=== PATIENT | male | born 1960 | race Caucasian/White ===

== ENCOUNTER 2017-05-21 21:24 | Inpatient (IN) | payer MEDICAID ==
[~2017-05-21] VITALS: Ht 172.7 cm; Wt 71.0 kg
[2017-05-21 22:42] LABS: BASOPHIL % 0.3 % (0-2); PLATELET COUNT 163 x10^3mcL (130-400); RED CELL DISTRIBUTION WIDTH 19.7 % (11.5-14.5)
[2017-05-21 23:21] LABS: ALBUMIN 3.5 g/dL (3.4-5.0); BILIRUBIN TOTAL 0.4 mg/dL (0.20-1.00); CALCIUM 9.9 mg/dL (8.5-10.1); CARBON DIOXIDE 29.5 mmol/L (21-32)
[2017-05-21 23:22] LABS: CK-MB 10.2 ng/mL (0-3.6); TOTAL PROTEIN, SERUM 8.7 g/dL (6.4-8.2)
[2017-05-21 23:24] LABS: POTASSIUM SERUM 5.6 mmol/L (3.5-5.1)
[2017-05-21 23:25] LABS: CREATININE SERUM 5.3 mg/dL (0.7-1.3)
[2017-05-22] VITALS (17 sets, daily range): BP systolic 107–165; BP diastolic 49–96
[2017-05-22] MEDS ORDERED: NORCO1 TA2 GT (00:19)
[2017-05-22] MEDS ORDERED: SYNTHROID0.125 MG GT (00:20)
[2017-05-22] MEDS ORDERED: EPOGEN10000 U/ML IJ (00:20)
[2017-05-22] MEDS ORDERED: MOM PO (00:21)
[2017-05-22] MEDS ORDERED: DULCOLAX10 M1 RC (00:21)
[2017-05-22] MEDS ORDERED: FLEET ENEMA135 ML RC (00:22)
[2017-05-22] MEDS ORDERED: ALBUTEROL SULFAT0.51 NEB (00:22)
[2017-05-22] MEDS ORDERED: PROSTATE HEALT1 EACH (00:23)
[2017-05-22] MEDS ORDERED: ATIVAN1 MG GT (00:23)
[2017-05-22] MEDS ORDERED: NEP PO (00:23)
[2017-05-22 01:18] LABS: MAGNESIUM 3.3 mg/dL (1.8-2.4); PHOSPHOROUS 7.4 mg/dL (2.5-4.9)
[2017-05-22 01:20] LABS: T3 TOTAL 0.62 ng/mL
[2017-05-22 01:28] LABS: FREE THYROXINE INDEX 2.4 ug/dL (1.4-4.5); T4(THYROXINE) 8.5 ug/dL (4.7-13.3)
[2017-05-22 01:34] LABS: CHOLESTEROL/HDL RATIO 1.7
[2017-05-22 07:00] LABS: BASOPHIL % 0.4 % (0-2); PLATELET COUNT 127 x10^3mcL (130-400); RED CELL DISTRIBUTION WIDTH 18.5 % (11.5-14.5)
[2017-05-22 07:19] LABS: CALCIUM 9.5 mg/dL (8.5-10.1); CARBON DIOXIDE 26.2 mmol/L (21-32); MAGNESIUM 3.1 mg/dL (1.8-2.4); PHOSPHOROUS 7.3 mg/dL (2.5-4.9); POTASSIUM SERUM 5.5 mmol/L (3.5-5.1)
[2017-05-22 07:28] LABS: CREATININE SERUM 5.5 mg/dL (0.7-1.3)
[2017-05-23] VITALS (16 sets, daily range): BP systolic 118–169; BP diastolic 67–91
[2017-05-23 05:37] LABS: BASOPHIL % 0.3 % (0-2)
[2017-05-23 05:44] LABS: CALCIUM 9.1 mg/dL (8.5-10.1); CARBON DIOXIDE 26.8 mmol/L (21-32); CREATININE SERUM 3.2 mg/dL (0.7-1.3); POTASSIUM SERUM 4.2 mmol/L (3.5-5.1)
[2017-05-23 05:51] LABS: PLATELET COUNT 125 x10^3mcL (130-400); RED CELL DISTRIBUTION WIDTH 18.2 % (11.5-14.5)
[2017-05-24] VITALS (18 sets, daily range): BP systolic 105–150; BP diastolic 66–98
[2017-05-24 07:53] LABS: PLATELET COUNT 148 x10^3mcL (130-400)
[2017-05-24 07:56] LABS: BASOPHIL % 0 % (0-2); RED CELL DISTRIBUTION WIDTH 18.9 % (11.5-14.5)
[2017-05-24 08:11] LABS: CALCIUM 9.9 mg/dL (8.5-10.1); CARBON DIOXIDE 27.7 mmol/L (21-32); POTASSIUM SERUM 4.4 mmol/L (3.5-5.1)
[2017-05-25] VITALS (9 sets, daily range): BP systolic 113–133; BP diastolic 57–72
[2017-05-25 06:55] LABS: CALCIUM 9.5 mg/dL (8.5-10.1); CARBON DIOXIDE 27.8 mmol/L (21-32); CREATININE SERUM 3.3 mg/dL (0.7-1.3); MAGNESIUM 2.1 mg/dL (1.8-2.4); PHOSPHOROUS 4.2 mg/dL (2.5-4.9); POTASSIUM SERUM 3.8 mmol/L (3.5-5.1)
[2017-05-25 07:26] LABS: BASOPHIL % 0.3 % (0-2); PLATELET COUNT 138 x10^3mcL (130-400)
[2017-05-25 07:27] LABS: RED CELL DISTRIBUTION WIDTH 18.5 % (11.5-14.5)
[2017-05-26] VITALS (8 sets, daily range): BP systolic 125–160; BP diastolic 55–76
[2017-05-26 06:34] LABS: BASOPHIL % 0.2 % (0-2)
[2017-05-26 06:37] LABS: PLATELET COUNT 118 x10^3mcL (130-400); RED CELL DISTRIBUTION WIDTH 18.3 % (11.5-14.5)
[2017-05-26 07:21] LABS: CALCIUM 9.9 mg/dL (8.5-10.1); CARBON DIOXIDE 26.6 mmol/L (21-32); POTASSIUM SERUM 4.6 mmol/L (3.5-5.1)
[2017-05-26 07:24] LABS: CREATININE SERUM 4.3 mg/dL (0.7-1.3)
[2017-05-27] VITALS (10 sets, daily range): BP systolic 108–164; BP diastolic 55–91
[2017-05-27 07:36] LABS: BASOPHIL % 0.1 % (0-2)
[2017-05-27 07:43] LABS: PLATELET COUNT 119 x10^3mcL (130-400); RED CELL DISTRIBUTION WIDTH 18.2 % (11.5-14.5)
[2017-05-27 07:49] LABS: CARBON DIOXIDE 29.1 mmol/L (21-32); POTASSIUM SERUM 4.5 mmol/L (3.5-5.1)
[2017-05-28 06:20] VITALS: BP 140/78
[2017-05-28 07:27] LABS: BASOPHIL % 0.1 % (0-2); PLATELET COUNT 156 x10^3mcL (130-400)
[2017-05-28 07:39] LABS: RED CELL DISTRIBUTION WIDTH 18.1 % (11.5-14.5)
[2017-05-28 07:47] LABS: CALCIUM 10.4 mg/dL (8.5-10.1); CARBON DIOXIDE 28.7 mmol/L (21-32); CREATININE SERUM 3.8 mg/dL (0.7-1.3); POTASSIUM SERUM 4.1 mmol/L (3.5-5.1)
[2017-05-28 08:30] VITALS: BP 140/78
[2017-05-28 10:32] VITALS: BP 127/76
[2017-05-28 16:15] VITALS: BP 124/66
[2017-05-28 16:49] VITALS: BP 124/66
[2017-05-28 22:04] VITALS: BP 109/56
[2017-05-29 08:55] LABS: CALCIUM 10.6 mg/dL (8.5-10.1); CARBON DIOXIDE 25.9 mmol/L (21-32); PHOSPHOROUS 3.4 mg/dL (2.5-4.9); POTASSIUM SERUM 4.3 mmol/L (3.5-5.1)
[2017-05-29 09:00] LABS: BASOPHIL % 0.3 % (0-2); PLATELET COUNT 144 x10^3mcL (130-400)
[2017-05-29 09:55] LABS: RED CELL DISTRIBUTION WIDTH 18.4 % (11.5-14.5)
[2017-05-29 10:17] LABS: CREATININE SERUM 4.8 mg/dL (0.7-1.3)
[2017-05-29 10:40] VITALS: BP 143/68
[2017-05-29 16:49] VITALS: BP 117/62
[2017-05-29 21:21] VITALS: BP 131/72
[2017-05-30] VITALS (9 sets, daily range): BP systolic 119–137; BP diastolic 65–76
[2017-05-30 07:11] LABS: PLATELET COUNT 163 x10^3mcL (130-400)
[2017-05-30 07:13] LABS: BASOPHIL % 0 % (0-2); RED CELL DISTRIBUTION WIDTH 18.9 % (11.5-14.5)
[2017-05-30 07:15] LABS: CALCIUM 9.9 mg/dL (8.5-10.1); CARBON DIOXIDE 29.6 mmol/L (21-32); CREATININE SERUM 3.2 mg/dL (0.7-1.3); POTASSIUM SERUM 3.3 mmol/L (3.5-5.1)
[2017-05-31] VITALS (7 sets, daily range): BP systolic 109–145; BP diastolic 60–79
[2017-06-01] VITALS (7 sets, daily range): BP systolic 104–146; BP diastolic 78–85
[2017-06-01 07:34] LABS: BASOPHIL % 0.3 % (0-2); PLATELET COUNT 203 x10^3mcL (130-400)
[2017-06-01 07:38] LABS: RED CELL DISTRIBUTION WIDTH 18.5 % (11.5-14.5)
[2017-06-01 07:59] LABS: POTASSIUM SERUM 3.2 mmol/L (3.5-5.1)
[2017-06-01 08:00] LABS: CALCIUM 10.1 mg/dL (8.5-10.1); CARBON DIOXIDE 27.3 mmol/L (21-32); CREATININE SERUM 3.4 mg/dL (0.7-1.3); MAGNESIUM 2.1 mg/dL (1.8-2.4); PHOSPHOROUS 3.6 mg/dL (2.5-4.9)
[2017-06-02] VITALS (12 sets, daily range): BP systolic 113–146; BP diastolic 66–84
[2017-06-02 07:05] LABS: CALCIUM 10.3 mg/dL (8.5-10.1); CARBON DIOXIDE 26.5 mmol/L (21-32); MAGNESIUM 2.3 mg/dL (1.8-2.4); PHOSPHOROUS 4.8 mg/dL (2.5-4.9); POTASSIUM SERUM 3.6 mmol/L (3.5-5.1)
[2017-06-02 07:11] LABS: BASOPHIL % 0.3 % (0-2); PLATELET COUNT 230 x10^3mcL (130-400); RED CELL DISTRIBUTION WIDTH 18.3 % (11.5-14.5)
[2017-06-02 08:06] LABS: CREATININE SERUM 4.6 mg/dL (0.7-1.3)
[2017-06-03] VITALS (9 sets, daily range): BP systolic 114–132; BP diastolic 72–88
[2017-06-03 07:41] LABS: BASOPHIL % 0.3 % (0-2); PLATELET COUNT 241 x10^3mcL (130-400)
[2017-06-03 07:52] LABS: RED CELL DISTRIBUTION WIDTH 18.5 % (11.5-14.5)
[2017-06-03 08:04] LABS: CALCIUM 9.9 mg/dL (8.5-10.1); CARBON DIOXIDE 27.7 mmol/L (21-32); CREATININE SERUM 3.3 mg/dL (0.7-1.3); POTASSIUM SERUM 3.5 mmol/L (3.5-5.1)
[2017-06-04] VITALS (12 sets, daily range): BP systolic 119–141; BP diastolic 72–91
[2017-06-05] VITALS (10 sets, daily range): BP systolic 128–153; BP diastolic 78–88
[2017-06-05 07:00] LABS: BASOPHIL % 0.3 % (0-2); PLATELET COUNT 294 x10^3mcL (130-400)
[2017-06-05 07:03] LABS: RED CELL DISTRIBUTION WIDTH 18.3 % (11.5-14.5)
[2017-06-05 07:13] LABS: CARBON DIOXIDE 28.6 mmol/L (21-32); CREATININE SERUM 3.3 mg/dL (0.7-1.3)
[2017-06-05 07:30] LABS: POTASSIUM SERUM 2.6 mmol/L (3.5-5.1)
[2017-06-06] VITALS (10 sets, daily range): BP systolic 91–162; BP diastolic 64–92
[2017-06-06 07:01] LABS: BASOPHIL % 0.4 % (0-2); PLATELET COUNT 321 x10^3mcL (130-400)
[2017-06-06 07:23] LABS: CALCIUM 10.4 mg/dL (8.5-10.1); CARBON DIOXIDE 25.4 mmol/L (21-32); POTASSIUM SERUM 4.4 mmol/L (3.5-5.1)
[2017-06-06 07:27] LABS: CREATININE SERUM 4.2 mg/dL (0.7-1.3)
[2017-06-06 07:57] LABS: RED CELL DISTRIBUTION WIDTH 19.4 % (11.5-14.5)
[2017-06-07 05:32] VITALS: BP 115/75
[2017-06-07 09:57] VITALS: BP 124/38
[2017-06-07 17:14] VITALS: BP 155/44
[2017-06-07 20:00] VITALS: BP 155/44
[2017-06-07 21:57] VITALS: BP 133/81
[2017-06-07 22:13] VITALS: BP 133/81
[2017-06-08] VITALS (9 sets, daily range): BP systolic 129–156; BP diastolic 57–98
[2017-06-08 16:21] LABS: CALCIUM 10.5 mg/dL (8.5-10.1); CARBON DIOXIDE 28.6 mmol/L (21-32); POTASSIUM SERUM 3.8 mmol/L (3.5-5.1)
[2017-06-08 16:29] LABS: CREATININE SERUM 4.7 mg/dL (0.7-1.3)
[2017-06-08 16:41] LABS: BASOPHIL % 0.5 % (0-2)
[2017-06-08 16:46] LABS: PLATELET COUNT 402 x10^3mcL (130-400); RED CELL DISTRIBUTION WIDTH 19.2 % (11.5-14.5)
[2017-06-09] VITALS (7 sets, daily range): BP systolic 133–145; BP diastolic 75–89
[2017-06-09 06:35] LABS: BASOPHIL % 0.6 % (0-2); PLATELET COUNT 377 x10^3mcL (130-400)
[2017-06-09 06:36] LABS: RED CELL DISTRIBUTION WIDTH 19.1 % (11.5-14.5)
[2017-06-09 06:51] LABS: CALCIUM 10.6 mg/dL (8.5-10.1); CARBON DIOXIDE 27.5 mmol/L (21-32)
[2017-06-09 06:59] LABS: CREATININE SERUM 5.3 mg/dL (0.7-1.3)
[2017-06-10] VITALS (14 sets, daily range): BP systolic 107–141; BP diastolic 70–84
[2017-06-10 06:39] LABS: CALCIUM 10.1 mg/dL (8.5-10.1); CARBON DIOXIDE 28.6 mmol/L (21-32); POTASSIUM SERUM 3.9 mmol/L (3.5-5.1)
[2017-06-10 06:42] LABS: CREATININE SERUM 4.1 mg/dL (0.7-1.3)
[2017-06-10 06:50] LABS: BASOPHIL % 0.4 % (0-2); PLATELET COUNT 453 x10^3mcL (130-400)
[2017-06-11] VITALS (13 sets, daily range): BP systolic 107–149; BP diastolic 69–94
[2017-06-11 06:32] LABS: BASOPHIL % 0.7 % (0-2); PLATELET COUNT 382 x10^3mcL (130-400)
[2017-06-11 07:34] LABS: RED CELL DISTRIBUTION WIDTH 18.6 % (11.5-14.5)
[2017-06-11 10:14] LABS: CALCIUM 10.3 mg/dL (8.5-10.1); CARBON DIOXIDE 26.9 mmol/L (21-32); POTASSIUM SERUM 4.2 mmol/L (3.5-5.1)
[2017-06-11 10:20] LABS: CREATININE SERUM 5.3 mg/dL (0.7-1.3)
[2017-06-12] VITALS (7 sets, daily range): BP systolic 128–135; BP diastolic 81–94
[2017-06-12 06:29] LABS: CARBON DIOXIDE 28.5 mmol/L (21-32); CREATININE SERUM 3.7 mg/dL (0.7-1.3); POTASSIUM SERUM 3.6 mmol/L (3.5-5.1)
[2017-06-12 06:45] LABS: BASOPHIL % 0.4 % (0-2); PLATELET COUNT 390 x10^3mcL (130-400)
[2017-06-12 07:02] LABS: RED CELL DISTRIBUTION WIDTH 19.2 % (11.5-14.5)
[2017-06-13] VITALS (12 sets, daily range): BP systolic 112–152; BP diastolic 80–94
[2017-06-13 06:58] LABS: BASOPHIL % 0.2 % (0-2); PLATELET COUNT 356 x10^3mcL (130-400)
[2017-06-13 07:08] LABS: RED CELL DISTRIBUTION WIDTH 18.5 % (11.5-14.5)
[2017-06-13 07:42] LABS: CALCIUM 10.7 mg/dL (8.5-10.1); CARBON DIOXIDE 25.1 mmol/L (21-32)
[2017-06-14 07:00] VITALS: BP 162/95
[2017-06-14 07:18] LABS: CALCIUM 10.5 mg/dL (8.5-10.1); CARBON DIOXIDE 28.1 mmol/L (21-32); CREATININE SERUM 3.7 mg/dL (0.7-1.3); MAGNESIUM 2.1 mg/dL (1.8-2.4); PHOSPHOROUS 4.4 mg/dL (2.5-4.9); POTASSIUM SERUM 3.8 mmol/L (3.5-5.1)
[2017-06-14 10:10] VITALS: BP 158/100
[2017-06-14 12:53] VITALS: Ht 172.7 cm; Wt 71.0 kg
[2017-06-14 18:00] VITALS: BP 140/85
[2017-06-14 19:40] VITALS: BP 140/85
[2017-06-14 21:43] VITALS: BP 140/85
[2017-06-14 23:11] VITALS: BP 145/89
[2017-06-15] VITALS (12 sets, daily range): BP systolic 105–152; BP diastolic 65–100
[2017-06-15 08:13] LABS: CALCIUM 10.7 mg/dL (8.5-10.1); MAGNESIUM 2.2 mg/dL (1.8-2.4); PHOSPHOROUS 3.8 mg/dL (2.5-4.9); POTASSIUM SERUM 4.3 mmol/L (3.5-5.1)
[2017-06-15 08:19] LABS: CREATININE SERUM 5.3 mg/dL (0.7-1.3)
[2017-06-16] VITALS (15 sets, daily range): BP systolic 78–117; BP diastolic 46–78
[2017-06-16 06:45] LABS: CALCIUM 10.7 mg/dL (8.5-10.1); CARBON DIOXIDE 21.4 mmol/L (21-32); MAGNESIUM 2.5 mg/dL (1.8-2.4); PHOSPHOROUS 2.8 mg/dL (2.5-4.9); POTASSIUM SERUM 4.6 mmol/L (3.5-5.1)
[2017-06-16 07:21] LABS: CREATININE SERUM 6.3 mg/dL (0.7-1.3)
[2017-06-17] VITALS (16 sets, daily range): BP systolic 114–152; BP diastolic 55–88
[2017-06-17 06:45] LABS: CALCIUM 9.8 mg/dL (8.5-10.1); CARBON DIOXIDE 28.8 mmol/L (21-32); MAGNESIUM 1.8 mg/dL (1.8-2.4); PHOSPHOROUS 1.7 mg/dL (2.5-4.9); POTASSIUM SERUM 3.2 mmol/L (3.5-5.1)
[2017-06-17 06:51] LABS: CREATININE SERUM 4.3 mg/dL (0.7-1.3)
[2017-06-18] VITALS (11 sets, daily range): BP systolic 96–176; BP diastolic 52–100
[2017-06-18 07:21] LABS: CALCIUM 10.4 mg/dL (8.5-10.1); CARBON DIOXIDE 26.5 mmol/L (21-32); PHOSPHOROUS 1.3 mg/dL (2.5-4.9); POTASSIUM SERUM 4.2 mmol/L (3.5-5.1)
[2017-06-18 07:22] LABS: CREATININE SERUM 5.4 mg/dL (0.7-1.3)
[2017-06-19] VITALS (7 sets, daily range): BP systolic 125–145; BP diastolic 86–103
[2017-06-19 06:40] LABS: PLATELET COUNT 221 x10^3mcL (130-400)
[2017-06-19 06:57] LABS: CALCIUM 9.8 mg/dL (8.5-10.1); CARBON DIOXIDE 32.8 mmol/L (21-32); CREATININE SERUM 3.8 mg/dL (0.7-1.3); MAGNESIUM 1.7 mg/dL (1.8-2.4); POTASSIUM SERUM 3.8 mmol/L (3.5-5.1)
[2017-06-19 07:03] LABS: RED CELL DISTRIBUTION WIDTH 17.6 % (11.5-14.5)
[2017-06-19 09:43] LABS: BAND NEUTROPHIL 6 % (0-10); BASOPHIL 0 % (0-2); MONOCYTE 10 % (0-7); SEGMENTED NEUTROPHILS 70 % (37-75)
[2017-06-19 09:46] LABS: PLATELET MORPHOLOGY PLATELETS NORMAL; rbc morphology (normal/abnorm) ABNORMAL (NORMAL); tear drop cell (dacryocyte) 1+
[2017-06-20 05:22] VITALS: BP 123/78
[2017-06-20 06:18] LABS: PLATELET COUNT 229 x10^3mcL (130-400)
[2017-06-20 06:22] LABS: CALCIUM 9.7 mg/dL (8.5-10.1); CARBON DIOXIDE 28.1 mmol/L (21-32); CREATININE SERUM 2.6 mg/dL (0.7-1.3); MAGNESIUM 1.8 mg/dL (1.8-2.4); PHOSPHOROUS 1.7 mg/dL (2.5-4.9)
[2017-06-20 06:26] LABS: POTASSIUM SERUM 2.8 mmol/L (3.5-5.1)
[2017-06-20 07:07] LABS: RED CELL DISTRIBUTION WIDTH 17.3 % (11.5-14.5)
[2017-06-20 08:07] LABS: BAND NEUTROPHIL 6 % (0-10); BASOPHIL 0 % (0-2); METAMYELOCTE 2 % (0-2); MONOCYTE 7 % (0-7); MYELOCYTE 1 % (0-2); SEGMENTED NEUTROPHILS 77 % (37-75)
[2017-06-20 08:08] LABS: PLATELET MORPHOLOGY PLATELETS NORMAL; rbc morphology (normal/abnorm) ABNORMAL (NORMAL)
[2017-06-20 08:09] LABS: tear drop cell (dacryocyte) 1+
[2017-06-20 10:23] VITALS: BP 122/77
[2017-06-20 16:55] VITALS: BP 135/89
[2017-06-20 17:44] VITALS: BP 135/89
[2017-06-20 21:01] VITALS: BP 135/72
[2017-06-21] VITALS (8 sets, daily range): BP systolic 120–137; BP diastolic 62–84
[2017-06-21 06:00] LABS: PLATELET COUNT 236 x10^3mcL (130-400)
[2017-06-21 06:20] LABS: CALCIUM 10.1 mg/dL (8.5-10.1); CARBON DIOXIDE 25.2 mmol/L (21-32); CREATININE SERUM 3.6 mg/dL (0.7-1.3); MAGNESIUM 1.8 mg/dL (1.8-2.4); POTASSIUM SERUM 3.5 mmol/L (3.5-5.1)
[2017-06-21 06:42] LABS: RED CELL DISTRIBUTION WIDTH 17.3 % (11.5-14.5)
[2017-06-21 09:56] LABS: BAND NEUTROPHIL 5 % (0-10); BASOPHIL 0 % (0-2); METAMYELOCTE 2 % (0-2); MONOCYTE 6 % (0-7); MYELOCYTE 1 % (0-2); SEGMENTED NEUTROPHILS 71 % (37-75)
[2017-06-21 09:59] LABS: rbc morphology (normal/abnorm) ABNORMAL (NORMAL); tear drop cell (dacryocyte) 1+
== END 2017-06-21 20:49 | DRG 130 ==
LOC: ED 21:24 → MU 05-22 00:12 → IC 05-22 00:12 → DU 05-22 00:12 → IC 05-22 03:25 → DU 05-24 21:00 → MU 06-02 09:46
PROVIDERS: Emergency Medicine; Family Medicine; Internal Medicine; ADMIT Family Medicine
PROC: 5A1955Z Respiratory Ventilation, Greater than 96 Consecutive Hours (ICD-10-PCS; principal; 2017-05-22)
PROC: 0B21XFZ Change Tracheostomy Device in Trachea, External Approach (ICD-10-PCS; 2017-05-22)
PROC: 0D20XUZ Change Feeding Device in Upper Intestinal Tract, External Approach (ICD-10-PCS; 2017-05-24)
DX: J15.6 Pneumonia due to other Gram-negative bacteria (principal); N17.0 Acute kidney failure with tubular necrosis; I50.43 Acute on chronic combined systolic (congestive) and diastolic (congestive) heart failure; R53.2 Functional quadriplegia; J96.01 Acute respiratory failure with hypoxia; J15.1 Pneumonia due to Pseudomonas; J95.03 Malfunction of tracheostomy stoma; N18.6 End stage renal disease; E87.8 Other disorders of electrolyte and fluid balance, not elsewhere classified; I13.2 Hypertensive heart and chronic kidney disease with heart failure and with stage 5 chronic kidney disease, or end stage renal disease; B18.2 Chronic viral hepatitis C; E87.1 Hypo-osmolality and hyponatremia; E87.5 Hyperkalemia; E87.6 Hypokalemia; E83.41 Hypermagnesemia; E83.39 Other disorders of phosphorus metabolism; K59.00 Constipation, unspecified; D64.9 Anemia, unspecified; E03.9 Hypothyroidism, unspecified; Z68.23 Body mass index [BMI] 23.0-23.9, adult; Z93.0 Tracheostomy status; Z99.2 Dependence on renal dialysis; Z16.24 Resistance to multiple antibiotics; Y83.3 Surgical operation with formation of external stoma as the cause of abnormal reaction of the patient, or of later complication, without mention of misadventure at the time of the procedure; Y92.122 Bedroom in nursing home as the place of occurrence of the external cause
CPT/HCPCS: 36556; 36600; 83880; 84439; A4628; A4719; A9579; J0696; J0885-EC; J1170; J1580; J1642; J1644; J1940; J1956; J2060; J2270; J2405; J2543; J3480; J3490; J7030; J7040; J7050; J7620; J7626; P9047; Q0092